=== PATIENT | female | born 1975 | race Hispanic/Latino ===

== ENCOUNTER 2020-04-02 08:24 | Emergency (ER) | payer OTHER ==
[~2020-04-02] VITALS: Ht 170.2 cm; Wt 77.1 kg
[2020-04-02] MEDS ORDERED: SODIUM CHLORIDE 0.9% 1000ML 1,000 ML IV STA (08:34)
[2020-04-02] MEDS ORDERED: ONDANSETRON HCL INJ 2MG/ML 2ML 2 MG/ML VIAL IV STA (08:34)
[2020-04-02] MEDS ORDERED: HYDROCODONE/CHLORPHENIRAMINE 5 ML LIQCR PO ONE (08:45)
[2020-04-02 08:48] LABS: BASOPHILS % 0.1 % (0.0-1.0); EOSINOPHILS % 0.3 % (0.0-6.0); HEMATOCRIT 45.8 % (34.2-44.1); HEMOGLOBIN 15.4 g/dL (12.0-16.0); LYMPHOCYTES # (AUTO) 2.1 (1.0-3.2); LYMPHOCYTES % 28.2 % (18.0-39.1); MEAN CORPUSCULAR HEMOGLOBIN 30.3 pg (28-32); MEAN CORPUSCULAR HGB CONC 33.6 g/dL (31-35); MONOCYTES # (AUTO) 0.7 (0.2-0.8); MONOCYTES % 8.6 % (4.4-11.3); NEUTROPHILS # (AUTO) 4.7 (2.1-6.9); NEUTROPHILS % 62.3 % (38.7-80.0); PLATELET COUNT 240 x10e3/uL (140-360); RED BLOOD COUNT 5.09 x10e6/uL (3.6-5.1); RED CELL DISTRIBUTION WIDTH 12.5 % (11.7-14.4)
[2020-04-02 08:53] LABS: INR 0.9; PROTHROMBIN TIME 12.6 seconds (11.9-14.5)
[2020-04-02 08:54] LABS: PARTIAL THROMBOPLASTIN TIME 29.2 seconds (23.8-35.5)
[2020-04-02 09:02] LABS: ALANINE AMINOTRANSFERASE 125 IU/L (0-55); ALBUMIN 4.4 g/dL (3.5-5.0); ALBUMIN/GLOBULIN RATIO 1.3 (0.8-2.0); ALKALINE PHOSPHATASE 96 IU/L (40-150); ANION GAP 14.1 mmol/L (8-16); BLOOD UREA NITROGEN 12 mg/dL (7-26); BUN/CREATININE RATIO 15 (6-25); CALCIUM 9.4 mg/dL (8.4-10.2); CARBON DIOXIDE 26 mmol/L (22-29); CHLORIDE 103 mmol/L (98-107); CREATINE KINASE 17 IU/L (29-168); CREATININE, SERUM 0.82 mg/dL (0.57-1.11); EST GLOMERULAR FILTRATION RATE > 60 ML/MIN (60-); GLUCOSE 215 mg/dL (74-118); POTASSIUM 4.1 mmol/L (3.5-5.1); SODIUM 139 mmol/L (136-145)
[2020-04-02] MEDS ORDERED: SODIUM CHLORIDE 0.9% 50ML 50 ML ONE (09:10)
[2020-04-02] MEDS ORDERED: IOPAMIDOL 370 MG/ML 200 ML INFUS..BTL INJ ONE (09:11)
--- NOTE | 2020-04-02 09:42 | Emergency Department Note ---
History of Present Illnes History of Present Illness Chief Complaint: Respiratory History of Present Illness This is a 45 year old female "SICK" X 1 1/2 WEEKS. TESTED NEG. COVID 8 DAYS AGO (DRIVE-THROUGH TEST WHERE SHE SWABBED HERSELF). LAST NIGHT BEGAN HAVING CONTINUOS CHEST PAIN TO LEFT CLAVICLE AREA. BENDING OVER AND LYING FLAT MAKES IT WORSE. SITTING UP MAKES IT BETTER. BODY ACHES. HURTS TO TAKE A DEEP BREATH, EYES HURT, SORE THROAT. Historian: Patient Arrival Mode: Car Additional Treatment LAW CLERK: NONE Creative Guru Required: No Onset (how long ago): day(s) (10) Radiation: Reports non-radiation Severity: moderate Onset quality: gradual Timing of current episode: constant (URI SX'S X 10 DAYS, CP CONSTANT SINCE STARTING LAST NIGHT) Progression: unchanged Chronicity: new Context: Reports recent illness Relieving factors: none Exacerbating factors: movement, other (DEEP BREATHS) Associated symptoms: Reports denies other symptoms, Reports chest pain, Reports cough, Reports fever/chills Past Medical/Family History Physician Review I have reviewed the patient's past medical and family history. Any updates have been documented here. Past Medical History Recent Fever: No Clinical Suspicion of Infectio: No New/Unexplained Change in Ment: No Other Medical History: SVT Past Surgical History: Knee Replacement Other Surgery: RIGHT KNEE Social History Smoking Cessation: Never Smoker Counseling Performed: No Alcohol Use: None Any Illegal Drug Use: No TB Exposure/Symptoms: No Physically hurt or threatened: No Family History Family history of heart diseas: No Other Any Pre-Existing Lines (PICC,: No Review of Systems Review of Systems Constitutional: Reports as per HPI EENTM: Reports no symptoms Cardiovascular: Reports as per HPI Respiratory: Reports as per HPI Gastrointestinal: Reports no symptoms Genitourinary: Reports no symptoms Musculoskeletal: Reports no symptoms Integumentary: Reports no symptoms Neurological: Reports no symptoms Psychological: Reports no symptoms Endocrine: Reports no symptoms Hematological/Lymphatic: Reports no symptoms Physical Exam Related Data Allergies: Coded Allergies: ibuprofen (Verified Allergy, Severe, ANAPHYLAXIS, 04/02/20) Triage Vital Signs Vital Signs Date Time Temp Pulse Resp B/P (MAP) Pulse Ox O2 Delivery O2 Flow Rate FiO2 04/02/20 08:28 98.3 91 18 138/101 100 04/02/20 09:34 Room Air Vital signs reviewed: Yes Physical Exam CONSTITUTIONAL Constitutional: Present well-developed, Present well-nourished HENT HENT: Present normocephalic, Present atraumatic, Present oropharynx clear/moist, Present nose normal HENT L/R: Present left ext ear normal, Present right ext ear normal EYES Eyes: Reports PERRL, Reports conjunctivae normal NECK Neck: Present ROM normal PULMONARY Pulmonary: Present effort normal, Present breath sounds normal CARDIOVASCULAR Cardiovascular: Present regular rhythm, Present heart sounds normal, Present capillary refill normal, Present normal rate GASTROINTESTINAL Abdominal: Present soft, Present nontender, Present bowel sounds normal GENITOURINARY Genitourinary: Present exam deferred SKIN Skin: Present warm, Present dry MUSCULOSKELETAL Musculoskeletal: Present ROM normal NEUROLOGICAL Neurological: Present alert, Present oriented x 3, Present no gross motor or sensory deficits PSYCHOLOGICAL Psychological: Present mood/affect normal, Present judgement normal Results Laboratory Result Diagram: 04/02/20 0825 04/02/20 0825 Laboratory Laboratory Tests Test 04/02/20 08:35 04/02/20 08:25 Coronavirus (PCR) Detected (NOTDETECTED) Group A Streptococcus Screen Negative (NEGATIVE) White Blood Count 7.55 x10e3/uL (4.8-10.8) Red Blood Count 5.09 x10e6/uL (3.6-5.1) Hemoglobin 15.4 g/dL (12.0-16.0) Hematocrit 45.8 % (34.2-44.1) Mean Corpuscular Volume 90.0 fL (81-99) Mean Corpuscular Hemoglobin 30.3 pg (28-32) Mean Corpuscular Hemoglobin Concent 33.6 g/dL (31-35) Red Cell Distribution Width 12.5 % (11.7-14.4) Platelet Count 240 x10e3/uL (140-360) Neutrophils (%) (Auto) 62.3 % (38.7-80.0) Lymphocytes (%) (Auto) 28.2 % (18.0-39.1) Monocytes (%) (Auto) 8.6 % (4.4-11.3) Eosinophils (%) (Auto) 0.3 % (0.0-6.0) Basophils (%) (Auto) 0.1 % (0.0-1.0) Neutrophils # (Auto) 4.7 (2.1-6.9) Lymphocytes # (Auto) 2.1 (1.0-3.2) Monocytes # (Auto) 0.7 (0.2-0.8) Eosinophils # (Auto) 0.0 (0.0-0.4) Basophils # (Auto) 0.0 (0.0-0.1) Absolute Immature Granulocyte (auto 0.04 x10e3/uL (0-0.1) Prothrombin Time 12.6 seconds (11.9-14.5) Prothromb Time International Ratio 0.90 Activated Partial Thromboplast Time 29.2 seconds (23.8-35.5) D-Dimer Quantitative (PE/DVT) 0.08 ug/mLFEU (0.00-0.45) Sodium Level 139 mmol/L (136-145) Potassium Level 4.1 mmol/L (3.5-5.1) Chloride Level 103 mmol/L (98-107) Carbon Dioxide Level 26 mmol/L (22-29) Anion Gap 14.1 mmol/L (8-16) Blood Urea Nitrogen 12 mg/dL (7-26) Creatinine 0.82 mg/dL (0.57-1.11) Estimat Glomerular Filtration Rate > 60 ML/MIN (60-) BUN/Creatinine Ratio 15 (6-25) Glucose Level 215 mg/dL (74-118) Calcium Level 9.4 mg/dL (8.4-10.2) Total Bilirubin 0.3 mg/dL (0.2-1.2) Aspartate Amino Transf (AST/SGOT) 49 IU/L (5-34) Alanine Aminotransferase (ALT/SGPT) 125 IU/L (0-55) Alkaline Phosphatase 96 IU/L (40-150) Creatine Kinase 17 IU/L (29-168) Creatine Kinase MB 1.50 ng/mL (0-5.0) Troponin I 0.010 ng/mL (0-0.300) B-Type Natriuretic Peptide < 10.0 pg/mL (0-100) Total Protein 7.9 g/dL (6.5-8.1) Albumin 4.4 g/dL (3.5-5.0) Globulin 3.5 g/dL (2.3-3.5) Albumin/Globulin Ratio 1.3 (0.8-2.0) Laboratory Tests Test 04/02/20 08:35 04/02/20 08:25 Group A Streptococcus Screen Negative (NEGATIVE) White Blood Count 7.55 x10e3/uL (4.8-10.8) Red Blood Count 5.09 x10e6/uL (3.6-5.1) Hemoglobin 15.4 g/dL (12.0-16.0) Hematocrit 45.8 % (34.2-44.1) Mean Corpuscular Volume 90.0 fL (81-99) Mean Corpuscular Hemoglobin 30.3 pg (28-32) Mean Corpuscular Hemoglobin Concent 33.6 g/dL (31-35) Red Cell Distribution Width 12.5 % (11.7-14.4) Platelet Count 240 x10e3/uL (140-360) Neutrophils (%) (Auto) 62.3 % (38.7-80.0) Lymphocytes (%) (Auto) 28.2 % (18.0-39.1) Monocytes (%) (Auto) 8.6 % (4.4-11.3) Eosinophils (%) (Auto) 0.3 % (0.0-6.0) Basophils (%) (Auto) 0.1 % (0.0-1.0) Neutrophils # (Auto) 4.7 (2.1-6.9) Lymphocytes # (Auto) 2.1 (1.0-3.2) Monocytes # (Auto) 0.7 (0.2-0.8) Eosinophils # (Auto) 0.0 (0.0-0.4) Basophils # (Auto) 0.0 (0.0-0.1) Absolute Immature Granulocyte (auto 0.04 x10e3/uL (0-0.1) Prothrombin Time 12.6 seconds (11.9-14.5) Prothromb Time International Ratio 0.90 Activated Partial Thromboplast Time 29.2 seconds (23.8-35.5) D-Dimer Quantitative (PE/DVT) 0.08 ug/mLFEU (0.00-0.45) Sodium Level 139 mmol/L (136-145) Potassium Level 4.1 mmol/L (3.5-5.1) Chloride Level 103 mmol/L (98-107) Carbon Dioxide Level 26 mmol/L (22-29) Anion Gap 14.1 mmol/L (8-16) Blood Urea Nitrogen 12 mg/dL (7-26) Creatinine 0.82 mg/dL (0.57-1.11) Estimat Glomerular Filtration Rate > 60 ML/MIN (60-) BUN/Creatinine Ratio 15 (6-25) Glucose Level 215 mg/dL (74-118) Calcium Level 9.4 mg/dL (8.4-10.2) Total Bilirubin 0.3 mg/dL (0.2-1.2) Aspartate Amino Transf (AST/SGOT) 49 IU/L (5-34) Alanine Aminotransferase (ALT/SGPT) 125 IU/L (0-55) Alkaline Phosphatase 96 IU/L (40-150) Creatine Kinase 17 IU/L (29-168) Creatine Kinase MB 1.50 ng/mL (0-5.0) Troponin I 0.010 ng/mL (0-0.300) B-Type Natriuretic Peptide < 10.0 pg/mL (0-100) Total Protein 7.9 g/dL (6.5-8.1) Albumin 4.4 g/dL (3.5-5.0) Globulin 3.5 g/dL (2.3-3.5) Albumin/Globulin Ratio 1.3 (0.8-2.0) Lab results reviewed: Yes Imaging Imaging results reviewed: Yes Impressions EXAM: CT Chest WITH contrast 04/02/2020 9:21 AM INDICATION: ^Y ^PE PROTOCOL ^[id number] ^[id number] COMPARISON: None TECHNIQUE: Chest was scanned utilizing a multidetector helical scanner from the lung apex through the level of the adrenal glands with administration of IV contrast. Coronal and sagittal reformations were obtained. Routine protocol was performed. IV CONTRAST: 100 mL of Omnipaque 300 COMPLICATIONS: None RADIATION DOSE: Total DLP: 419 mGy*cm Estimated effective dose: (DLP x 0.014 x size factor) mSv CTDIvol has been reviewed. It is below the limits set by the Radiation Protocol Committee (RPC). Dose modulation, iterative reconstruction, and/or weight based adjustment of the mA/kV was utilized to reduce the radiation dose to as low as reasonably achievable. FINDINGS: LINES/ TUBES: None. VASCULAR: There are no filling defects within the pulmonary arteries to the segmental level. The main pulmonary artery has normal caliber measuring 2.3 cm. The ascending and descending aorta have normal enhancement and caliber measuring 2.8 cm and 2.2 cm, respectively. LUNGS AND AIRWAYS: There is bibasilar atelectasis. The lungs are otherwise unremarkable. Airways are normal. PLEURA: The pleural spaces are clear. HEART AND MEDIASTINUM: The thyroid gland is normal. No mediastinal, hilar or axillary lymphadenopathy. The heart is normal in size. There is no pericardial effusion. UPPER ABDOMEN: There is hepatic steatosis of the partially imaged liver. The remainder of the partially imaged upper abdomen is unremarkable. BONES: The visualized bony thorax is within normal limits. SOFT TISSUES: Unremarkable. IMPRESSION: 1. No evidence of pulmonary embolism to the segmental levels. 2. No acute intrathoracic abnormality identified. 3. Hepatic steatosis. Signed by: Moustapha Simmons MD on 04/02/2020 10:22 AM Procedures 12 Lead ECG Interpretation ECG Interpretation : ECG: ECG 1 Creative Guru: Interpreted by ED physician Date: Apr 02, 2020 Time: 08:44 Rhythm: sinus rhythm Rate: normal BPM: 84 QRS axis: normal ST segments normal: Yes T waves normal: Yes Clinical Impression: normal ECG Assessment & Plan Medical Decision Making MDM URI SX'S X 10 DAYS THEN CP STARTING LAST NIGHT, PLEURITIC - CBC, CHEM, PT/PTT, COVID SWAB, CT CHEST - R/O PE, PNEUMONIA, COVID19 Reassessment Reassessment COVID +, CT NEGATIVE FOR PE OR INFILTRATES AND NO PERICARDIAL EFFUSION. O2 SAT 99% ON RA. DC HOME, ZPACK, INSTRUCTIONS ON COVID/SELF- ISOLATION/QUARANTINE/PRONING, GET A PULSE OXIMETER AND MONITOR LEVELS, TYLENOL AND WILL GIVE A FEW TYL#3 FOR PAIN, F/U PCP, RTED SX'S WORSEN, SOB, O2 SAT <92% Assessment & Plan Final Impression: (1) COVID-19 Depart Disposition: HOME, SELF-CARE Last Vital Signs Date Time Temp Pulse Resp B/P (MAP) Pulse Ox O2 Delivery O2 Flow Rate FiO2 04/02/20 09:34 98.3 84 16 118/81 97 Room Air Medications in the ED Ondansetron HCl 4 mg ONCE STAT IV Last administered on 04/02/20at 09:19; Admin Dose 4 MG; Start 04/02/20 at 08:34; Stop 04/02/20 at 08:46; Status DC Sodium Chloride 1,000 ml @ 0 mls/hr Q0M STAT IV Last administered on 04/02/20at 09:19; Admin Dose 999 MLS/HR; Start 04/02/20 at 08:34; Stop 04/02/20 at 08:42; Status DC Hydrocodone Bitartrate 5 ml NOW ONCE PO Last administered on 04/02/20at 09:19; Admin Dose 5 ML; Start 04/02/20 at 08:45; Stop 04/02/20 at 08:46; Status DC Sodium Chloride 50 ml @ ud STK-MED ONCE .ROUTE ; Start 04/02/20 at 09:10; Stop 04/02/20 at 09:04; Status DC Iopamidol 74,000 mg STK-MED ONCE INJ ; Start 04/02/20 at 09:11; Stop 04/02/20 at 09:04; Status DC BECKI PIPER MD Apr 02, 2020 09:42
--- NOTE | 2020-04-02 10:25 | Diagnostic Imaging Report ---
EXAM: CT Chest WITH contrast 04/02/2020 9:21 AM INDICATION: ^Y ^PE PROTOCOL ^[id number] ^[id number] COMPARISON: None TECHNIQUE: Chest was scanned utilizing a multidetector helical scanner from the lung apex through the level of the adrenal glands with administration of IV contrast. Coronal and sagittal reformations were obtained. Routine protocol was performed. IV CONTRAST: 100 mL of Omnipaque 300 COMPLICATIONS: None RADIATION DOSE: Total DLP: 419 mGy*cm Estimated effective dose: (DLP x 0.014 x size factor) mSv CTDIvol has been reviewed. It is below the limits set by the Radiation Protocol Committee (RPC). Dose modulation, iterative reconstruction, and/or weight based adjustment of the mA/kV was utilized to reduce the radiation dose to as low as reasonably achievable. FINDINGS: LINES/ TUBES: None. VASCULAR: There are no filling defects within the pulmonary arteries to the segmental level. The main pulmonary artery has normal caliber measuring 2.3 cm. The ascending and descending aorta have normal enhancement and caliber measuring 2.8 cm and 2.2 cm, respectively. LUNGS AND AIRWAYS: There is bibasilar atelectasis. The lungs are otherwise unremarkable. Airways are normal. PLEURA: The pleural spaces are clear. HEART AND MEDIASTINUM: The thyroid gland is normal. No mediastinal, hilar or axillary lymphadenopathy. The heart is normal in size. There is no pericardial effusion. UPPER ABDOMEN: There is hepatic steatosis of the partially imaged liver. The remainder of the partially imaged upper abdomen is unremarkable. BONES: The visualized bony thorax is within normal limits. SOFT TISSUES: Unremarkable. IMPRESSION: 1. No evidence of pulmonary embolism to the segmental levels. 2. No acute intrathoracic abnormality identified. 3. Hepatic steatosis. Signed by: Moustapha Simmons MD on 04/02/2020 10:22 AM
== END 2020-04-02 11:15 | disposition home or self-care (01) ==
LOC: ER 08:34
DX: U07.1 COVID-19 (principal); R05 Cough
CPT/HCPCS: 36415; 71260; 80053; 82550; 82553; 83518; 83880; 84484; 85025; 85379; 85610; 85730; 87070; 93005; 99284; J2405; J7030; Q9967; U0002

== ENCOUNTER 2020-08-14 09:31 | Emergency (ER) | payer OTHER ==
[~2020-08-14] VITALS: Ht 170.2 cm; Wt 74.8 kg
[2020-08-14] MEDS ORDERED: ACETAMINOPHEN 325 MG TAB PO ONE (10:15)
[2020-08-14 11:27] VITALS: BP 120/85
== END 2020-08-14 11:28 | disposition home or self-care (01) ==
LOC: ER 10:30
DX: M25.561 Pain in right knee (principal); M23.91 Unspecified internal derangement of right knee; Y93.01 Activity, walking, marching and hiking
CPT/HCPCS: 99284

== ENCOUNTER 2021-10-27 02:05 | Emergency (ER) | payer OTHER ==
[~2021-10-27] VITALS: Ht 167.6 cm; Wt 74.8 kg
== END 2021-10-27 04:20 | disposition home or self-care (01) ==
LOC: ER 02:07
DX: M25.562 Pain in left knee (principal); S86.812A Strain of other muscle(s) and tendon(s) at lower leg level, left leg, initial encounter; X50.1XXA Overexertion from prolonged static or awkward postures, initial encounter; Y99.0 Civilian activity done for income or pay
CPT/HCPCS: 99283

== ENCOUNTER 2021-12-12 06:25 | Emergency (ER) | payer OTHER ==
[~2021-12-12] VITALS: Ht 167.6 cm; Wt 74.8 kg
[2021-12-12] MEDS ORDERED: LACTATED RINGER'S 1,000 ML INJ ONE (06:45)
[2021-12-12 06:56] LABS: BASOPHILS % 0.1 % (0.0-1.0); HEMATOCRIT 41.3 % (34.2-44.1); HEMOGLOBIN 14.3 g/dL (12.0-16.0); LYMPHOCYTES # (AUTO) 3.2 (1.0-3.2); LYMPHOCYTES % 44.3 % (18.0-39.1); MEAN CORPUSCULAR HEMOGLOBIN 30.7 pg (28-32); MEAN CORPUSCULAR HGB CONC 34.6 g/dL (31-35); MEAN CORPUSCULAR VOLUME 88.6 fL (81-99); MONOCYTES # (AUTO) 0.5 (0.2-0.8); MONOCYTES % 6.4 % (4.4-11.3); NEUTROPHILS # (AUTO) 3.5 (2.1-6.9); NEUTROPHILS % 49.1 % (38.7-80.0); PLATELET COUNT 222 x10e3/uL (140-360); RED BLOOD COUNT 4.66 x10e6/uL (3.6-5.1); RED CELL DISTRIBUTION WIDTH 12.3 % (11.7-14.4)
[2021-12-12 07:13] LABS: ANION GAP 13.9 mmol/L (8-16); CALCIUM 9.4 mg/dL (8.4-10.2); CREATININE, SERUM 0.82 mg/dL (0.57-1.11); POTASSIUM 3.9 mmol/L (3.5-5.1)
[2021-12-12 07:13] LABS: CLARITY,URINE CLOUDY (CLEAR); COLOR,URINE YELLOW (YELLOW); LEUKOCYTE ESTERASE ,URINE TRACE (NEGATIVE)
[2021-12-12 07:14] LABS: KETONES,URINE NEGATIVE (NEGATIVE); NITRITE,URINE NEGATIVE (NEGATIVE); PROTEIN,URINE DIPSTICK NEGATIVE (NEGATIVE); URINE UROBILINOGEN 0.2 mg/dL (0.2 - 1)
[2021-12-12] MEDS ORDERED: INSULIN REGULAR, HUMAN 100 UNIT/1 ML IV ONE (07:15)
[2021-12-12] MEDS ORDERED: METFORMIN HCL500 M1 PO (07:21)
[2021-12-12 07:28] LABS: EPITHELIAL CELLS,URINE MODERATE /LPF
[2021-12-12 07:29] LABS: BACTERIA,URINE MODERATE /HPF
[2021-12-12 07:30] LABS: CALCIUM OXALATE CRYSTALS,UR MODERATE (FEW)
[2021-12-12] MEDS ORDERED: MACROBID 100 M100 MG PO (07:43)
== END 2021-12-12 08:01 | disposition home or self-care (01) ==
LOC: ER 06:44
DX: R53.83 Other fatigue (principal); E11.65 Type 2 diabetes mellitus with hyperglycemia; R51.9 Headache, unspecified; F17.210 Nicotine dependence, cigarettes, uncomplicated
CPT/HCPCS: 36415; 80048; 81001; 82948; 84702; 85025; 99284; J1817; J7121

== ENCOUNTER 2022-03-28 07:23 | Emergency (ER) | payer OTHER ==
[~2022-03-28] VITALS: Ht 167.6 cm; Wt 69.4 kg
[~2022-03-28 07:23] MED LIST: MACROBID 100 M100 MG PO; METFORMIN HCL500 M1 PO
[2022-03-28] MEDS ORDERED: DEXAMETHASONE 4 MG TAB PO STA (08:38)
[2022-03-28] MEDS ORDERED: DEXAMETHASONE SOD PHOS 10 MG/1 ML VIAL ONE (08:54)
== END 2022-03-28 08:45 | disposition home or self-care (01) ==
LOC: ER 07:40
DX: J02.8 Acute pharyngitis due to other specified organisms (principal); E11.9 Type 2 diabetes mellitus without complications; Z20.822 Contact with and (suspected) exposure to COVID-19; Z88.8 Allergy status to other drugs, medicaments and biological substances; Z79.84 Long term (current) use of oral hypoglycemic drugs
CPT/HCPCS: 83518; 87070; 99283; J1100; U0002